=== PATIENT | male | born 1990 | race African-American/Black ===

== ENCOUNTER 2016-07-09 20:37 | Emergency (ER) | payer SELFPAY ==
[~2016-07-09] VITALS: Ht 175.3 cm; Wt 68.0 kg
[2016-07-09 20:55] VITALS: BP 173/102
[2016-07-09] MEDS ORDERED: IBUP-1007 PO (21:35)
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
[2016-07-09] MEDS ORDERED: AZITHROMYCIN 250 MG TABLET PO ONE (21:45)
[2016-07-09] MEDS ORDERED: CEFTRIAXONE IM 250 MG VIAL. IM ONE (21:45)
[2016-07-09] MEDS ORDERED: IBUPROFEN 600 MG TABLET. PO ONE (21:45)
== END 2016-07-09 22:08 | disposition home or self-care (01) ==
LOC: ER 20:37
DX: S09.8XXA Other specified injuries of head, initial encounter (principal); F12.10 Cannabis abuse, uncomplicated; Z20.2 Contact with and (suspected) exposure to infections with a predominantly sexual mode of transmission; Y08.89XA Assault by other specified means, initial encounter; Y93.89 Activity, other specified; Y92.89 Other specified places as the place of occurrence of the external cause; Y99.8 Other external cause status
CPT/HCPCS: 96372; 99283; J0696; Q0144